=== PATIENT | male | born 1960 | race Caucasian/White ===

== ENCOUNTER 2020-01-27 16:45 | Emergency (ER) | payer MEDICARE, SELFPAY ==
[2020-01-27 16:47] VITALS: BP 146/94; PULSE 89; RESP 17; TEMP 36.6; O2SAT 96; BMI 33.4
--- NOTE | 2020-01-27 16:52 | ED.RN ---
PT PLACED IN C-COLLAR ON ARRIVAL TO ED.
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
[2020-01-27] MEDS: Morphine 4 MG/ML Syringe IV (18:08)
[2020-01-27] MEDS: Ondansetron 4 MG/2 ML Vial IV (18:08)
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
[2020-01-27 19:02] VITALS: BP 134/77; PULSE 62; RESP 15; O2SAT 98
== END 2020-01-27 19:04 | disposition home or self-care (01) ==
PROVIDERS: Emergency Provider Emergency Medicine; PCP Family Medicine
DX: S16.1XXA Strain of muscle, fascia and tendon at neck level, initial encounter (principal); S39.012A Strain of muscle, fascia and tendon of lower back, initial encounter; S20.219A Contusion of unspecified front wall of thorax, initial encounter; V53.5XXA Driver of pick-up truck or van injured in collision with car, pick-up truck or van in traffic accident, initial encounter; Y93.89 Activity, other specified; Y92.9 Unspecified place or not applicable; F32.9 Major depressive disorder, single episode, unspecified; F17.200 Nicotine dependence, unspecified, uncomplicated
CPT/HCPCS: 71046; 72040; 72100; 96374; 96375; 99283; A4216; J2405

== ENCOUNTER 2021-01-18 19:24 | Emergency (ER) | payer MEDICARE, SELFPAY ==
[2021-01-18 19:25] VITALS: BP 126/90; PULSE 88; RESP 16; TEMP 36.5; O2SAT 95; BMI 30.4
--- NOTE | 2021-01-18 19:52 | ED.VIS.LOWEX ---
HPI History of Present Illness Chief Complaint: Lower Extremity Injury Informant: patient Narrative Narrative: Patient has right hip pain. It started 4 hours ago. He states he was getting out of his truck and when he stepped down to the right leg he felt pain immediately in the right hip. Is also in the groin area. It is worse with movement and with walking. He has a history of 2 previous hip replacements on that right side. He did not take anything for the pain. PFSH PFSH Medical History Hypertension Marijuana abuse Smoker Home Medications duloxetine 60 mg PO DAILY 12/04/13 [History Last Taken 04/15/16] famotidine 40 mg PO DAILY 12/04/13 [History Last Taken 04/15/16] lisinopril 10 mg PO DAILY 12/04/13 [History Last Taken 04/16/16] omeprazole 40 mg PO DAILY 04/09/16 [History Last Taken 04/16/16] naproxen 500 mg PO BID #14 tab 01/27/20 [Rx Last Taken Unknown] prednisone 40 mg PO DAILY #8 tablet 01/18/21 [Rx Last Taken Unknown] Allergy/AdvReac Type Severity Reaction Status Date / Time fentanyl AdvReac Other Verified 01/18/21 19:29 Surgical History History of cholecystectomy Social History Smoking Status: Current every day smoker ROS [facility] ED Constitutional Constitutional ED: Denies chills or fever(s) Eyes Eyes: Denies blurry vision, change in vision or diplopia ENT ENT ED: Denies ear pain, rhinorrhea or sore throat Cardiovascular Cardiovascular: Denies chest pain or palpitations Respiratory/Chest Respiratory/Chest: Denies cough, dyspnea or sputum Gastrointestinal Gastrointestinal: Denies abdominal pain, diarrhea, nausea or vomiting Genitourinary Genitourinary ED: Denies dysuria, hematuria or urinary frequency Musculoskeletal Musculoskeletal: Reports other Details: Right hip pain Integumentary Denies change in pigmentation or rash Neurologic Neurologic: Denies headache(s), numbness or weakness Psychiatric Psychiatric: Denies anxiety or depression Endocrine Endocrinology: Denies polydipsia or polyuria EXAM Physical Exam Const Vital Signs: 01/18/21 19:25 Temperature 97.7 F L Temperature Source Temporal Pulse Rate 88 Respiratory Rate 16 Blood Pressure 126/90 H Blood Pressure Mean 102 Pulse Ox 95 Oxygen Delivery Method Room Air Positive well nourished and well developed General Appearance ED: well developed HEENT normocephalic and atraumatic Eyes PERRL Neck full ROM Extremity Extremity Narrative: Right hip is minimally tender over the greater trochanteric area. He really has no pain with logroll, flexion or extension. There is no pain with heel strike. Legs are of equal length. He has a 2+ DP pulse. No hernias are palpated in the groin area. Neuro oriented x3, CN's II-XII intact bilaterally and moves all extremities Sensorium / Orientation: alert Motor Exam: Negative for general weakness Psych mental status grossly normal Skin Rashes: no rashes MDM MDM MDM Narrative Medical decision making narrative: The patient is given [place]. X-rays reviewed by myself and radiologist show no acute findings. The patient continued to have pain so he was given morphine intramuscularly. He states the pain is in the anterior portion of the hip now. I wondered if this could be manifestation of sciatica. The pain is not over the medial part of the thigh or along the deep venous system. There is no evidence of swelling. I doubt that this is a DVT. I will give the patient prednisone here and for home. He will follow-up with his PCP. Radiography Diagnostic Testing: Radiology Impression Hip/Pelvis X-Ray 01/18/21 20:33 IMPRESSION: No acute radiographic abnormalities. Partially visualized posterior fixation hardware involving the lower lumbar spine and sacrum. Total right hip arthroplasty appears to be in good positioning. No evidence of hardware failure or loosening. Electronically Signed: José Migule Grijalva MD at 21:22 EDT Tel , Service support , Discharge Plan Triage Chief Complaint: Lower Extremity Injury ED Provider: Terry Hensley Dx/Rx/DC Orders Clinical Impression: Acute pain of right hip Instructions: ED Sciatica Prescriptions: New prednisone 20 MG tablet 40 mg PO DAILY Qty: 8 RF: 0 No Action famotidine 20 MG tablet 40 mg PO DAILY RF: 0 lisinopril 2.5 MG tablet 10 mg PO DAILY RF: 0 duloxetine 60 MG capsule 60 mg PO DAILY RF: 0 omeprazole 40 MG capsule,delayed release(DR/EC) 40 mg PO DAILY RF: 0 naproxen 500 MG tablet 500 mg PO BID Qty: 14 RF: 0 Primary Care Provider: Cristopher Sheikh Referrals: Cristopher Sheikh MD [Primary Care Provider] - Disposition Disposition: Home, self care
--- NOTE | 2021-01-18 20:33 | RAD_ITS ---
INDICATION: pain EXAMINATION/TECHNIQUE: X-RAY - RIGHT XR Hip Unilateral with Pelvis when performed; 2-3 Views COMPARISON: 10/05/2014. FINDINGS: Partially visualized posterior fixation hardware involving the lower lumbar spine and sacrum. Total right hip arthroplasty appears to be in good positioning. No evidence of hardware failure or loosening. No acute fracture or malalignment. No blastic or lytic lesions. The soft tissues are unremarkable. RAD/HIP, UNI W/ Pelvis 2-3 Views IMPRESSION: No acute radiographic abnormalities. Partially visualized posterior fixation hardware involving the lower lumbar spine and sacrum. Total right hip arthroplasty appears to be in good positioning. No evidence of hardware failure or loosening. Electronically Signed: José Miguel Grijalva MD at 21:22 EDT Tel , Service support ,
[2021-01-18] MEDS: HYDROcodone Bitartrate/Apap 5/325 Tablet PO (20:53)
[2021-01-18 21:43] VITALS: BP 134/81; PULSE 85; RESP 18; O2SAT 97
[2021-01-18] MEDS: predniSONE 20 MG Tablet 40 MG PO (21:59)
[2021-01-18] MEDS: morphine 10 MG/ML Syringe 8 MG IM (21:59)
--- NOTE | 2021-01-18 23:00 | ED.RN ---
PT WAS HAVING DIFFICULTIES GETTING OOB FOR D/C. STATED HE COULD BARELY MOVE HIS LEG AND HE FELT IT WAS DEADWEIGHT. DR SINGER MADE AWARE. SHE WAS IN TO SEE PT WHO REFUSED ADMISSION AT THIS TIME. SON HERE TO TRANSPORT PT HOME. HE WAS UNABLE TO BEAR WEIGHT ON RLE AND HOPPED TO WHEELCHAIR WITH X2 ASSIST. PT REMINDED THAT HE CAN RETURN TO ED IF HE IS UNABLE TO AMBULATE. D/C INSTRUCTIONS GIVEN TO SON.
== END 2021-01-18 23:15 | disposition home or self-care (01) ==
PROVIDERS: Emergency Provider Emergency Medicine; PCP Family Medicine
DX: M25.551 Pain in right hip (principal); I10 Essential (primary) hypertension; F17.200 Nicotine dependence, unspecified, uncomplicated; Z96.641 Presence of right artificial hip joint; Z79.899 Other long term (current) drug therapy
CPT/HCPCS: 73502; 96372; 99283

== ENCOUNTER → 2021-06-12 07:39 | Outpatient (CLI) | payer MEDICARE, SELFPAY ==
--- NOTE | 2021-06-12 12:50 | NEURO ---
NCS and/or EMG Patient Report Ordering Doctor: Cristopher Sheikh DATE OF SERVICE: 06/12/21 [place] Presents for electrodiagnostic testing of the upper limbs. He reports numbness and tingling in both hands. Electrodiagnostic findings: Right median motor nerve demonstrates borderline prolonged distal latency with normal amplitude and reduced conduction velocity. Left median motor nerve demonstrates normal distal latency amplitude with reduced conduction velocity. Prolonged median sensory latency at the wrist bilaterally. Normal ulnar and radial sensory responses median and ulnar F waves are normal. On needle EMG, all muscles tested in the upper limbs showed no evidence of denervation with normal motor unit action potentials. Electrodiagnostic assessment: This is an abnormal study in the upper limbs 1. Electrodiagnostic findings demonstrate bilateral median mononeuropathy. This is consistent with a mild bilateral carpal tunnel syndrome.
== END ==
LOC: PSN 07:40
PROVIDERS: PCP Family Medicine; Referring Provider Family Medicine; Visit Provider Family Medicine
DX: R20.0 Anesthesia of skin (principal)
CPT/HCPCS: 95886; 95913

== ENCOUNTER 2021-09-19 16:17 | Emergency (ER) | payer MEDICARE, SELFPAY ==
[2021-09-19 16:18] VITALS: BP 171/105; PULSE 116; RESP 17; TEMP 36.4; O2SAT 96; BMI 35.6
[2021-09-19 16:20] VITALS: BP 171/105; PULSE 97; RESP 17; TEMP 36.4; O2SAT 98
[2021-09-19 16:34] VITALS: O2SAT 98
--- NOTE | 2021-09-19 16:34 | EKG12_ITS ---
Test Reason : CP Blood Pressure : / mmHG Vent. Rate : 104 BPM Atrial Rate : 104 BPM P-R Int : 168 ms QRS Dur : 090 ms QT Int : 334 ms P-R-T Axes : 037 -67 016 degrees QTc Int : 439 ms Sinus tachycardia Left axis deviation Low voltage QRS (Limb Leads) Poor R wave progression Abnormal ECG Confirmed by CHI SCHWARZ, DOC ([id number]), graphics editor CANDIS RODRIGUEZ ([id number]) on 09/23/2021 11:24:19 AM Referred By: AIRAM Confirmed By:DOC MIRELES MD
--- NOTE | 2021-09-19 16:36 | ED.VIS.CHEST ---
HPI History of Present Illness Chief Complaint: Chest Pain Informant: patient Onset/Context/Timing Onset: Days (3) Timing: Intermittent Quality: Positive for Dull Location: Left Chest (radiating into left shoulder only) Current Severity: Gone Maximum Severity: Moderate Worsened By: Exertion; Not Worsened By Breathing Relieved By: Rest Associated Symptoms: Positive for Diaphoresis and Dyspnea; Negative for Nausea, Vomiting, Cough, Fever, Lightheadedness and Palpitations Narrative Narrative: 3 days of exertional chest discomfort, goes away in about 10 minutes after he rests. No known history of heart disease. He does have a history of COPD and does not require home oxygen. He is a smoker. Also has a history of hypertension for which he takes medications. He has had a worse than chronic cough for the past month, states he always has pain everywhere and that is no different, does not feel more tired than usual. PFSH PFSH Medical History Hypertension Marijuana abuse Smoker Home Medications duloxetine 60 mg PO DAILY 12/04/13 [History Last Taken 04/15/16] famotidine 40 mg PO DAILY 12/04/13 [History Last Taken 04/15/16] lisinopril 10 mg PO DAILY 12/04/13 [History Last Taken 04/16/16] omeprazole 40 mg PO DAILY 04/09/16 [History Last Taken 04/16/16] naproxen 500 mg PO BID #14 tab 01/27/20 [Rx Last Taken Unknown] prednisone 40 mg PO DAILY #8 tablet 01/18/21 [Rx Last Taken Unknown] atorvastatin 40 mg PO DAILY 09/19/21 [History Last Taken Unknown] bupropion HCl 150 mg PO DAILY 09/19/21 [History Last Taken Unknown] Allergy/AdvReac Type Severity Reaction Status Date / Time fentanyl AdvReac Other Verified 09/19/21 16:20 Surgical History History of cholecystectomy Social History Smoking Status: Current every day smoker tobacco type: cigarettes ROS ROS ED Constitutional Constitutional ED: Reports body ache(s), excessive sweating and malaise; Denies chills or fever(s) Eyes Eyes: Denies change in vision or diplopia ENT ENT ED: Denies rhinorrhea or sore throat Cardiovascular Cardiovascular: Reports chest pain with activity and dyspnea on exertion; Denies edema or palpitations Respiratory/Chest Respiratory/Chest: Denies cough or dyspnea Gastrointestinal Gastrointestinal: Denies abdominal pain, diarrhea, nausea or vomiting Genitourinary Genitourinary ED: Denies dysuria or hematuria Musculoskeletal Musculoskeletal: Denies back pain or neck pain Integumentary Denies abscess or rash Neurologic Neurologic: Reports headache(s); Denies paresthesias or weakness Psychiatric Psychiatric: Denies anxiety or suicidal thoughts EXAM Physical Exam Const Vital Signs: 09/19/21 16:18 09/19/21 16:20 09/19/21 16:34 Temperature 97.6 F L 97.6 F L Temperature Source Temporal Temporal Pulse Rate 116 H 97 Respiratory Rate 17 17 Respiratory Effort Normal Non-Labored Blood Pressure 171/105 H 171/105 H Blood Pressure Mean 127 127 Pulse Ox 96 98 98 Oxygen Delivery Method Room Air Room Air Room Air 09/19/21 19:00 Temperature Temperature Source Pulse Rate 88 Respiratory Rate 19 H Respiratory Effort Blood Pressure 149/89 H Blood Pressure Mean 109 Pulse Ox 97 Oxygen Delivery Method Room Air Positive well nourished, well developed, obese and unkempt General Appearance ED: unkempt, well developed and NAD Nutritional Appearance: obese HEENT Reports moist mucous membranes normocephalic and atraumatic Eyes PERRL and EOMs intact bilaterally Neck full ROM and supple Resp normal respiratory effort and clear to auscultation bilaterally Cardio regular rate, regular rhythm, no murmurs, no JVD and peripheral pulses 2+ throughout Cardio Narrative: mild tachycardia GI non-tender and non-distended Auscultation: normoactive bowel sounds Palpation: soft Back/Spine no CVA tenderness General Back: other FROM Extremity normal to inspection and no calf tenderness General Extremety ED: Negative for edema, pulses abnormal or tenderness General Extremity: Negative for edema or pulses abnormal Neuro oriented x3, CN's II-XII intact bilaterally and no sensory deficits noted Sensorium / Orientation: awake and alert Motor Exam: strength 5/5 throughout Psych Appearance: unkempt Skin no rashes or lesions noted and no wounds Heart Score History: Highly Suspicious ECG: Nonspecific Repolarization Age: >45 - <65 years Risk Factors: 1 or 2 Risk Factors Troponin: </= Normal Limit Score: 5 MDM MDM MDM Narrative Medical decision making narrative: Patient was given baby aspirin x4 and observed. His symptoms resolved and he felt much better. His work-up is negative. I am concerned about his symptoms and offered admission, however he declines and wants to go home saying that he happens to have a stress test scheduled on Thursday, tonight being night. He plans on resting in his apartment until then, we discussed reasons to return. Lab Data Attestation: I reviewed the patient's lab results. Labs: Laboratory Results - last 24 hr 09/19/21 09/19/21 16:37 16:37 WBC 10.9 RBC 5.03 Hgb 15.0 Hct 45.6 MCV 90.7 MCH 29.8 MCHC 32.9 RDW Std Deviation 48.9 H RDW Coeff of Shemar 14.7 H Plt Count 316 MPV 8.9 Immature Gran % (Auto) 0.900 Neut % (Auto) 55.5 Lymph % (Auto) 31.0 [place] % (Auto) 10.0 Eos % (Auto) 2.1 Baso % (Auto) 0.5 Absolute Neuts (auto) 6.1 Absolute Lymphs (auto) 3.38 Nucleated RBC % 0 Sodium 139 Potassium 3.8 Chloride 106 Carbon Dioxide 24.0 Anion Gap 9 BUN 15 Creatinine 0.98 Estim Creat Clear Calc 78.52 Est GFR (MDRD) Af Amer 100 Est GFR (MDRD) Non-Af 83 BUN/Creatinine Ratio 15.3 Glucose 99 Calcium 9.8 Troponin I High Sens 9 Radiography Diagnostic Testing: Clinical Impression(s) from Imaging Studies Chest X-Ray 09/19/21 16:40 IMPRESSION: No active disease. Electronically Signed: Andrea Guillermo MD at 16:58 EST Tel , Service support , EKG Initial EKG: Attestation: I personally reviewed and interpreted this EKG as follows: Interpretation: No Acute Injury Pattern and Sinus Tachycardia Comments: left axis. late transition. Prior EKG tracings: available for review Prior: Unchanged (no major changes) Discharge Plan Triage Chief Complaint: Chest Pain ED Provider: Gaston Persaud Dx/Rx/DC Orders Clinical Impression: Intermittent chest pain Instructions: ED Chest Pain, Uncertain Cause Prescriptions: No Action famotidine 20 MG tablet 40 mg PO DAILY RF: 0 lisinopril 2.5 MG tablet 10 mg PO DAILY RF: 0 duloxetine 60 MG capsule 60 mg PO DAILY RF: 0 omeprazole 40 MG capsule,delayed release(DR/EC) 40 mg PO DAILY RF: 0 naproxen 500 MG tablet 500 mg PO BID Qty: 14 RF: 0 prednisone 20 MG tablet 40 mg PO DAILY Qty: 8 RF: 0 atorvastatin 40 mg tablet 40 mg PO DAILY RF: 0 bupropion HCl 150 mg tablet sustained-release 12 hr 150 mg PO DAILY RF: 0 Primary Care Provider: Cristopher Sheikh Referrals: Cristopher Sheikh MD [Primary Care Provider] - 3-5 Days if not improving Disposition Disposition: Home, Self Care
--- NOTE | 2021-09-19 16:40 | RAD_ITS ---
STUDY: X-RAY CHEST REASON FOR EXAM: Male, 60 years old. chest pain TECHNIQUE: Single AP portable view of the chest. COMPARISON: 01/27/2020 FINDINGS: The lungs are clear and expanded. There is no demonstrated pleural abnormality. Normal size heart. Normal mediastinum and wilma. Normal visualized pulmonary arteries. Normal visualized aortic arch and descending thoracic aorta. There is a dextroscoliosis of the thoracic spine. Normal visualized ribs, clavicles, and shoulders. There is no demonstrated abnormality of the visualized soft tissue structures of the upper abdomen. RAD/Chest 1 View (Portable) IMPRESSION: No active disease. Electronically Signed: Andrea Guillermo MD at 16:58 EST Tel , Service support ,
[2021-09-19] MEDS: Aspirin 81 MG TAB.CHEW 324 MG PO (16:41)
[2021-09-19 16:49] LABS: Absolute Lymphocyte Count 3.38 X10^3/uL (0.83-4.51); Absolute Neutrophil Count 6.1 X10^3/uL (2.0-7.7); Basophil# 0.06 X10^3/uL; Basophil% 0.5 % (0-1); Eosinophil# 0.23 X10^3/uL; Eosinophils% 2.1 % (0-5); Hematocrit 45.6 % (40-54); Lymphocyte # 3.38 X10^3/ul (0.83-4.51); Mean Corp Hgb Conc 32.9 g/dL (32-36); Mean Corpuscular Hgb 29.8 pg (27.0-32.0); Mean Corpuscular Volume 90.7 fL (80-94); Mean Platelet Vol. 8.9 fl (6.2-12.0); Monocyte# 1.09 X10^3/uL; NRBC Flagged by Analyzer 0 % (0-5); Neutrophil # 6.06 X10^3/uL (2.7-7.7); Neutrophil % 55.5 % (47-70); Platelet Count 316 K/mm3 (150-450); RBC Distribution Width CV 14.7 % (11.6-14.6); RBC Distribution Width SD 48.9 fl (35.1-43.9); Red Blood Count 5.03 M/mm3 (4.6-6.2); White Blood Count 10.9 K/mm3 (4.4-11.0)
[2021-09-19 17:22] LABS: Anion Gap 9 (5-15); BUN 15 mg/dL (7-18); BUN/Creat Ratio 15.3 RATIO (10-20); Calcium,Total 9.8 mg/dL (8.5-10.1); Chloride 106 mmol/L (98-107); Creatinine, Serum 0.98 mg/dL (0.70-1.30); EST Glomerular Filtration Rate 83 mL/min (>60); Est Glom Filt Rate - Afr Amer 100 mL/min (>60); Estimated Creatinine Clearance 78.52 ml/min; Glucose 99 mg/dL (74-106); Potassium 3.8 mmol/L (3.5-5.1); Sodium Level 139 mmol/L (136-145); Troponin-I HS 9 pg/mL (3.0-78.0)
[2021-09-19 19:00] VITALS: BP 149/89; PULSE 88; RESP 19; O2SAT 97
[2021-09-19 19:47] VITALS: PULSE 90; RESP 16; O2SAT 99
== END 2021-09-19 19:47 | disposition home or self-care (01) ==
PROVIDERS: Emergency Provider Emergency Medicine; PCP Family Medicine; Visit Provider Emergency Medicine
DX: R07.89 Other chest pain (principal); J44.9 Chronic obstructive pulmonary disease, unspecified; I10 Essential (primary) hypertension; F17.210 Nicotine dependence, cigarettes, uncomplicated; Z79.899 Other long term (current) drug therapy; E66.9 Obesity, unspecified; R06.00 Dyspnea, unspecified; Z68.35 Body mass index [BMI] 35.0-35.9, adult
CPT/HCPCS: 71045; 80048; 84484; 85025; 93005; 99285; A4216

== ENCOUNTER 2021-09-24 08:57 | Emergency (ER) | payer MEDICARE, SELFPAY ==
[2021-09-24 08:57] VITALS: BP 164/99; PULSE 83; RESP 28; TEMP 36.8; O2SAT 100; BMI 37.3
--- NOTE | 2021-09-24 09:19 | RAD_ITS ---
STUDY: X-RAY CHEST REASON FOR EXAM: Male, 60 years old. Chest pain TECHNIQUE: Single AP portable view of the chest. COMPARISON: Comparison is made with prior examination dated 09/19/2021. FINDINGS: EKG electrodes are seen. The lungs are clear and expanded. There is no demonstrated pleural abnormality. Normal size heart. Normal mediastinum and wilma. Normal visualized pulmonary arteries. There is atherosclerotic tortuosity of the aortic arch and descending thoracic aorta. There are diffuse degenerative changes of the visualized thoracic spine. Prior fusion of the lower thoracic and upper lumbar vertebrae. Normal visualized ribs, clavicles, and shoulders. There is no demonstrated abnormality of the visualized soft tissue structures of the upper abdomen. RAD/Chest 1 View (Portable) IMPRESSION: No acute abnormality is seen. Electronically Signed: Jorge Rajan MD at 10:57 EST , Service support ,
--- NOTE | 2021-09-24 09:20 | EKG12_ITS ---
Test Reason : CP Blood Pressure : / mmHG Vent. Rate : 078 BPM Atrial Rate : 078 BPM P-R Int : 178 ms QRS Dur : 104 ms QT Int : 392 ms P-R-T Axes : 028 -45 040 degrees QTc Int : 446 ms Normal sinus rhythm Left axis deviation Inferior infarct , age undetermined Abnormal ECG Confirmed by VIPIN SCHWARZ, MIKE ([id number]), supervising film or videotape editor CANDIS RODRIGUEZ ([id number]) on 09/25/2021 10:09:55 AM Referred By: SERGIO Confirmed By:MIKE LEW MD
--- NOTE | 2021-09-24 09:48 | EDS_ITS ---
HPI History of Present Illness Chief Complaint: Chest Pain Informant: patient Narrative Narrative: Patient is a 60-year-old male with history of GERD, tobacco abuse ERIC, hypertension and depression presenting with continued chest pain, shortness of breath as well as dizziness. Patient states for the past few months his doctor has been adjusting his psychiatric medications and he has not been feeling right. He states his head often feels cold but then he sweats. He often feels lightheaded and has had worsening spinning sensation. It is worse when he moves his head quickly. Seems to be worse when he looks to the right. He also notes that he has been having worsening chest discomfort for the past few weeks. It in his left chest and feels like its been punched. He states it is worse whenever he exerts himself or walks a short distance. He states he gets v christina short of breath when he does this as well as sweaty and lightheaded. His symptoms get better with rest. He has a persistent cough that also been worsening. He attributes it to his smoking. He denies any fever. He does have some posttussive vomiting most recently last night. He denies any leg swelling. Denies any history of DVT or PE. He is not currently on any anticoagulation. Patient was supposed to have a stress test yesterday for this chest pain but could not drive because of the weather and because his dizziness was too bad and he had a hard time focusing. Patient was seen in the ER 09/19/2021 for his chest pain. At that time he was offered admission because his chest pain was concerning for angina however patient had declined stating he would follow-up outpatient for his stress test. [facility] Medical History Hypertension Marijuana abuse Smoker Home Medications duloxetine 60 mg PO DAILY 12/04/13 [History Last Taken 04/15/16] famotidine 40 mg PO DAILY 12/04/13 [History Last Taken 04/15/16] lisinopril 10 mg PO DAILY 12/04/13 [History Last Taken 04/16/16] omeprazole 40 mg PO DAILY 04/09/16 [History Last Taken 04/16/16] naproxen 500 mg PO BID #14 tab 01/27/20 [Rx Last Taken Unknown] prednisone 40 mg PO DAILY #8 tablet 01/18/21 [Rx Last Taken Unknown] atorvastatin 40 mg PO DAILY 09/19/21 [History Last Taken Unknown] bupropion HCl 150 mg PO DAILY 09/19/21 [History Last Taken Unknown] guaifenesin [Mucinex] 1,200 mg PO Q12H PRN #20 tab 09/24/21 [Rx Last Taken Unknown] meclizine 25 mg PO TID PRN #20 tab 09/24/21 [Rx Last Taken Unknown] Allergy/AdvReac Type Severity Reaction Status Date / Time fentanyl AdvReac Other Verified 09/24/21 10:07 Surgical History History of cholecystectomy Social History Smoking Status: Current every day smoker tobacco type: cigarettes ROS ROS ED Constitutional Constitutional ED: Reports chills and sweats; Denies fever(s) Eyes Eyes: Denies change in vision ENT ENT ED: Denies ear pain, rhinorrhea or sore throat Cardiovascular Cardiovascular: Reports chest pain; Denies palpitations Respiratory/Chest Respiratory/Chest: Reports cough, dyspnea and dyspnea on exertion Gastrointestinal Gastrointestinal: Reports vomiting; Denies abdominal pain, constipation, diarrhea or nausea Genitourinary Genitourinary ED: Denies dysuria or hematuria Musculoskeletal Musculoskeletal: Denies arthralgias or myalgias Integumentary Denies rash Neurologic Neurologic: Denies headache(s) or weakness Psychiatric Psychiatric: Reports depression; Denies anxiety, suicidal ideation or suicidal thoughts EXAM Physical Exam Const Vital Signs: 09/24/21 08:57 09/24/21 11:46 09/24/21 11:54 Temperature 98.2 F Temperature Source Oral Pulse Rate 83 71 Pulse Rate [Lying] 73 Pulse Rate [Sitting] 78 Pulse Rate [Standing] 81 Respiratory Rate 28 H 17 Blood Pressure 164/99 H 138/78 H Blood Pressure [Lying] 137/87 H Blood Pressure [Sitting] 140/86 H Blood Pressure [Standing] 140/88 H Blood Pressure Mean 120 98 Blood Pressure Mean [Lying] 103 Blood Pressure Mean [Sitting] 104 Blood Pressure Mean [Standing] 105 Pulse Ox 100 97 Oxygen Delivery Method Room Air Room Air 09/24/21 12:50 Temperature Temperature Source Pulse Rate 66 Pulse Rate [Lying] Pulse Rate [Sitting] Pulse Rate [Standing] Respiratory Rate 19 H Blood Pressure 156/90 H Blood Pressure [Lying] Blood Pressure [Sitting] Blood Pressure [Standing] Blood Pressure Mean 112 Blood Pressure Mean [Lying] Blood Pressure Mean [Sitting] Blood Pressure Mean [Standing] Pulse Ox 93 Oxygen Delivery Method Positive well nourished and well developed General Appearance ED: well developed HEENT Reports TM's clear and dry mucous membranes normocephalic and atraumatic Tympanic Membrane ED: Yes TM's clear Mouth ED: Yes dry mucous membranes Mouth: dry mucous membranes Eyes PERRL and EOMs intact bilaterally Eyes Narrative: Nystagmus bilateral, horizontal and fatiguing with rightward gaze Neck supple and no JVD Chest Wall inspection of chest normal Resp normal respiratory effort Resp Narrative: Scattered rhonchi. No wheezes appreciated. breath sounds throughout. Effort and Inspection: Negative for respiratory distress Cardio regular rate and regular rhythm GI normal to inspection, nondistended, normoactive bowel sounds, soft to palpation and non-tender Extremity normal to inspection General Extremety ED: Negative for edema or tenderness General Extremity: Negative for edema Neuro oriented x3 and gait normal Sensorium / Orientation: awake and alert Motor Exam: Negative for general weakness Psych mental status grossly normal Mood & Affect: anxious Skin no rashes or lesions noted and no wounds Heart Score History: Slightly/Non-Suspicious ECG: Normal Age: >45 - <65 years Risk Factors: >/= 3 Risk Factors or History of CAD Troponin: </= Normal Limit Score: 3 MDM MDM MDM Narrative Medical decision making narrative: Patient is evaluated for multiple symptoms including dizziness, lightheadedness, cough that has been worsening for the past month and chest pain. Patient's been having this chest pain for weeks as well. It is concerning as it is worse with exertion however patient does not have any acute ischemic changes on his EKG and his troponin is negative x2 again today. He ultimately is found to have COVID-19 infection. I suspect that is why he is feeling worse. D-dimer is below the threshold so I do not suspect a PE. Patient does not have a leukocytosis and no signs of pneumonia. I do not suspect any superimposed bacterial infection. Will ultimately I do think patient would benefit from a stress test I do not think with his acute COVID-19 infection he needs to come in for stress test. He does not require admission for COVID itself. He is instructed to take [id number] medications including his albuterol inhalers for his COVID symptoms and to keep hydrated. He is counseled on return precautions as well as quarantine instructions. Patient verbalizes agreement and understand with this plan. Patient is given a dose of meclizine in the ER which does seem to help his dizziness. I suspect he also has a component of vertigo but I do not think this is his primary problem. He has normal coordination and I do not suspect a central vertigo. Lab Data Labs: Laboratory Results - last 24 hr 09/24/21 09/24/21 09/24/21 09:45 09:45 09:45 WBC 7.2 RBC 4.86 Hgb 14.7 Hct 44.2 MCV 90.9 MCH 30.2 MCHC 33.3 RDW Std Deviation 50.2 H RDW Coeff of Shemar 15.0 H Plt Count 276 MPV 9.0 Immature Gran % (Auto) 0.800 Neut % (Auto) 59.9 Lymph % (Auto) 23.6 Antelope % (Auto) 13.2 H Eos % (Auto) 1.7 Baso % (Auto) 0.8 Absolute Neuts (auto) 4.3 Absolute Lymphs (auto) 1.70 Nucleated RBC % 0 D-Dimer Quant (PE/DVT) 0.45 Sodium 137 Potassium 3.9 Chloride 104 Carbon Dioxide 26.0 Anion Gap 7 BUN 15 Creatinine 0.92 Estim Creat Clear Calc 83.64 Est GFR (MDRD) Af Amer 107 Est GFR (MDRD) Non-Af 89 BUN/Creatinine Ratio 16.2 Glucose 99 Calcium 9.0 Total Bilirubin 0.50 AST 23 ALT 38 Alkaline Phosphatase 174 H Total Creatine Kinase Troponin I High Sens 6 B-Natriuretic Peptide Total Protein 7.4 Albumin 3.6 Globulin 3.8 Albumin/Globulin Ratio 0.9 09/24/21 09/24/21 09/24/21 09:45 09:45 11:50 WBC RBC Hgb Hct MCV MCH MCHC RDW Std Deviation RDW Coeff of Shemar Plt Count MPV Immature Gran % (Auto) Neut % (Auto) Lymph % (Auto) [place] % (Auto) Eos % (Auto) Baso % (Auto) Absolute Neuts (auto) Absolute Lymphs (auto) Nucleated RBC % D-Dimer Quant (PE/DVT) Sodium Potassium Chloride Carbon Dioxide Anion Gap BUN Creatinine Estim Creat Clear Calc Est GFR (MDRD) Af Amer Est GFR (MDRD) Non-Af BUN/Creatinine Ratio Glucose Calcium Total Bilirubin AST ALT Alkaline Phosphatase Total Creatine Kinase 110 Troponin I High Sens 6 B-Natriuretic Peptide 97.0 Total Protein Albumin Globulin Albumin/Globulin Ratio Radiography Chest X-Ray - ED: 1 View, Read by ED Physician, Read by Radiologist and No Acute Disease Diagnostic Testing: Clinical Impression(s) from Imaging Studies Chest X-Ray 09/24/21 09:19 IMPRESSION: No acute abnormality is seen. Electronically Signed: Jorge Rajan MD at 10:57 EST , Service support , Rhythm Strip Rhythm Strip: Sinus Rhythm Rate: 78 Ectopy: None EKG Initial EKG: Attestation: I personally reviewed and interpreted this EKG as follows: Interpretation: Sinus Rhythm Comments: Normal sinus rhythm at a rate of 78 Left axis deviation Normal OR, QRS and QTc intervals Normal ST segments Discharge Plan Triage Chief Complaint: Chest Pain ED Provider: Rose Rodriguez Dx/Rx/DC Orders Clinical Impression: COVID-19 virus infection, Chest pain, Vertigo Instructions: Coronavirus Disease 2019 (COVID-19): Caring for Yourself or Others, ED Chest Pain, Uncertain Cause, ED Vertigo, Unspecified Prescriptions: New meclizine 25 mg tablet 25 mg PO TID PRN (Reason: dizziness) Qty: 20 RF: 0 guaifenesin [Mucinex] 600 mg tablet extended release 12hr 1,200 mg PO Q12H PRN (Reason: congestion) Qty: 20 RF: 0 No Action famotidine 20 MG tablet 40 mg PO DAILY RF: 0 lisinopril 2.5 MG tablet 10 mg PO DAILY RF: 0 duloxetine 60 MG capsule 60 mg PO DAILY RF: 0 omeprazole 40 MG capsule,delayed release(DR/EC) 40 mg PO DAILY RF: 0 naproxen 500 MG tablet 500 mg PO BID Qty: 14 RF: 0 prednisone 20 MG tablet 40 mg PO DAILY Qty: 8 RF: 0 atorvastatin 40 mg tablet 40 mg PO DAILY RF: 0 bupropion HCl 150 mg tablet sustained-release 12 hr 150 mg PO DAILY RF: 0 Primary Care Provider: Cristopher Sheikh Referrals: Cristopher Sheikh MD [Primary Care Provider] - Disposition Disposition: Home, Self Care Discharge Date/Time: 09/24/21 13:31
[2021-09-24 09:55] LABS: Absolute Neutrophil Count 4.3 X10^3/uL (2.0-7.7); Basophil# 0.06 X10^3/uL; Basophil% 0.8 % (0-1); Eosinophil# 0.12 X10^3/uL; Eosinophils% 1.7 % (0-5); Hematocrit 44.2 % (40-54); Hemoglobin 14.7 g/dL (13.0-16.5); Lymphocyte % 23.6 % (19-41); Mean Corp Hgb Conc 33.3 g/dL (32-36); Mean Corpuscular Hgb 30.2 pg (27.0-32.0); Mean Corpuscular Volume 90.9 fL (80-94); Monocyte# 0.95 X10^3/uL; Monocyte% 13.2 % (0-10); NRBC Flagged by Analyzer 0 % (0-5); Neutrophil % 59.9 % (47-70); Platelet Count 276 K/mm3 (150-450); RBC Distribution Width SD 50.2 fl (35.1-43.9); Red Blood Count 4.86 M/mm3 (4.6-6.2); White Blood Count 7.2 K/mm3 (4.4-11.0)
[2021-09-24 10:10] LABS: D-Dimer Quantitative (DVT/PE) 0.45 FEU/ug/m (0.27-0.49)
[2021-09-24 10:15] LABS: CPK Total, Creatine Kinase 110 U/L (39-308)
[2021-09-24 10:16] LABS: ALB/GLOB Ratio 0.9 RATIO (0.9-2.4); AST(SGOT) 23 U/L (15-37); Alanine Aminotransfer ALT/SGPT 38 U/L (16-61); Albumin, Serum 3.6 g/dL (3.2-5.0); Alkaline Phosphatase 174 U/L (45-117); Anion Gap 7 (5-15); BUN 15 mg/dL (7-18); BUN/Creat Ratio 16.2 RATIO (10-20); Chloride 104 mmol/L (98-107); Creatinine, Serum 0.92 mg/dL (0.70-1.30); EST Glomerular Filtration Rate 89 mL/min (>60); Est Glom Filt Rate - Afr Amer 107 mL/min (>60); Estimated Creatinine Clearance 83.64 ml/min; Globulin 3.8 g/dL (2.2-4.2); Glucose 99 mg/dL (74-106); Potassium 3.9 mmol/L (3.5-5.1); Protein, Total 7.4 g/dL (6.4-8.2); Sodium Level 137 mmol/L (136-145); Troponin-I HS 6 pg/mL (3.0-78.0)
[2021-09-24] MEDS: Meclizine HCl 25 MG Tablet PO (10:20)
[2021-09-24] MEDS: Ondansetron 4 MG/2 ML Vial IV (10:21)
[2021-09-24] MEDS: Pantoprazole Sodium 40 MG Tablet PO (10:21)
[2021-09-24 11:46] VITALS: BP 137/87; BP 140/86; BP 140/88; PULSE 73; PULSE 78; PULSE 81
[2021-09-24 11:54] VITALS: BP 138/78; PULSE 71; RESP 17; O2SAT 97
[2021-09-24 12:19] LABS: Troponin-I HS 6 pg/mL (3.0-78.0)
[2021-09-24 12:50] VITALS: BP 156/90; PULSE 66; RESP 19; O2SAT 93
== END 2021-09-24 13:31 | disposition home or self-care (01) ==
PROVIDERS: Emergency Provider Emergency Medicine; PCP Family Medicine; Visit Provider Emergency Medicine
DX: U07.1 COVID-19 (principal); F17.210 Nicotine dependence, cigarettes, uncomplicated; I10 Essential (primary) hypertension; Z79.899 Other long term (current) drug therapy; G47.33 Obstructive sleep apnea (adult) (pediatric); F32.A Depression, unspecified; K21.9 Gastro-esophageal reflux disease without esophagitis; R06.02 Shortness of breath
CPT/HCPCS: 71045; 80053; 82550; 83880; 84484; 85025; 85379; 87426; 93005; 96361; 96374; 99283; J7030; J2405

== ENCOUNTER 2021-10-31 09:35 | Emergency (ER) | payer MEDICARE, SELFPAY ==
[2021-10-31 09:39] VITALS: BP 119/102; PULSE 101; RESP 22; TEMP 37.6; O2SAT 95; BMI 37.2
[2021-10-31 09:52] VITALS: BP 117/71
--- NOTE | 2021-10-31 09:56 | CT_ITS ---
STUDY: CT BRAIN WITHOUT CONTRAST REASON FOR EXAM: Male, 60 years old. Headache, Dizziness RADIATION DOSAGE (If Supplied By Facility): CTDIvol = ( 44.99 ) mGy, DLP = ( 843.73 ) mGycm TECHNIQUE: Transaxial CT imaging of the brain was performed without administration of intravenous contrast material. Individualized dose optimization techniques were used for this CT. COMPARISON: 07/16/2012 FINDINGS: Normal soft tissue structures. Normal calvarium. Normal size ventricles and extra-axial spaces for the patient''s age. Normal white matter tracts of the cerebral hemispheres. Normal basal ganglia and thalami. Normal brainstem. Normal cerebellum. There is no intracranial hemorrhage. There are no findings of an acute ischemic infarction. Normal visualized paranasal sinuses. CT/Brain/Head without Contrast IMPRESSION: Normal unenhanced CT scan of the brain. Electronically Signed: Andrea Guillermo MD at 10:54 EST ,
--- NOTE | 2021-10-31 09:57 | EKG12_ITS ---
Test Reason : SOB Blood Pressure : / mmHG Vent. Rate : 099 BPM Atrial Rate : 099 BPM P-R Int : 160 ms QRS Dur : 094 ms QT Int : 352 ms P-R-T Axes : 039 060 033 degrees QTc Int : 451 ms Normal sinus rhythm Low voltage QRS (Limb Leads) Poor R wave progression Inferior infarct , age undetermined Abnormal ECG Confirmed by CHI SCHWARZ, DOC ([id number]), online content editor CANDIS RODRIGUEZ ([id number]) on 11/04/2021 11:13:15 AM Referred By: MARIE Confirmed By:DOC MIRELES MD
--- NOTE | 2021-10-31 09:59 | EDS_ITS ---
HPI History of Present Illness Chief Complaint: General Illness Narrative Narrative: Patient presents via EMS with multiple somatic complaints. He has history of obstructive sleep apnea, COPD, is a smoker. He has had spinal stenosis with surgeries. He states that since yesterday, last evening at around 5 or 6 PM, he has had shortness of breath, cough, and dizziness. He states he was given little pills to help with his dizziness from previous, although he describes near syncopal feeling. States he has a frontal headache on both sides. He denies any trauma to his head. He recently had COVID-19 and has recovered, but states that he has been short of breath and has had a cough with yellow sputum production. He denies any fevers or chills. No numbness or tingling of his arms or legs. No other symptoms. He states that his main concerns are his headache, dizziness, and his shortness of breath and cough with yellow sputum production. PFSH PFSH Medical History Hypertension Marijuana abuse Smoker Home Medications duloxetine 60 mg PO DAILY 12/04/13 [History Last Taken 04/15/16] famotidine 40 mg PO DAILY 12/04/13 [History Last Taken 04/15/16] lisinopril 10 mg PO DAILY 12/04/13 [History Last Taken 04/16/16] omeprazole 40 mg PO DAILY 04/09/16 [History Last Taken 04/16/16] naproxen 500 mg PO BID #14 tab 01/27/20 [Rx Last Taken Unknown] prednisone 40 mg PO DAILY #8 tablet 01/18/21 [Rx Last Taken Unknown] atorvastatin 40 mg PO DAILY 09/19/21 [History Last Taken Unknown] bupropion HCl 150 mg PO DAILY 09/19/21 [History Last Taken Unknown] guaifenesin [Mucinex] 1,200 mg PO Q12H PRN #20 tab 09/24/21 [Rx Last Taken Unknown] meclizine 25 mg PO TID PRN #20 tab 09/24/21 [Rx Last Taken Unknown] albuterol sulfate [Proventil HFA] 2 puff INHALATION Q6H PRN #6.7 g 10/31/21 [Rx Last Taken Unknown] prednisone 40 mg PO DAILY #10 tab 10/31/21 [Rx Last Taken Unknown] Allergy/AdvReac Type Severity Reaction Status Date / Time escitalopram [From Lexapro] AdvReac Nausea/Vom/ Verified 10/31/21 09:44 Diarrhea fentanyl AdvReac Other Verified 10/31/21 09:43 Surgical History History of cholecystectomy Social History Smoking Status: Current every day smoker tobacco type: cigarettes ROS ROS ED ROS Narrative Constitutional: No fever, no chills. HEENT: No sore throat. No neck pain. No loss of vision. No rhinorrhea. Cardiovascular: No chest pain. Chest tightness. No palpitations. No pedal edema. Respiratory: Positive cough, yellow sputum production. Positive shortness of breath. Abdominal: No abdominal pain. No nausea. No vomiting. Genitourinary: No dysuria. No hematuria. Musculoskeletal: No myalgias. No arthralgias. Neurologic: Frontal headaches. Positive dizziness. Positive lightheadedness. No paresthesia. Skin: No rash. No change in color. Psychiatric: No depression. No anxiety. EXAM Physical Exam Narrative Exam Narrative: Comprehensive work-up was pursued. EKG will be obtained. Const Vital Signs: 10/31/21 09:39 10/31/21 09:52 10/31/21 09:53 Temperature 99.6 F H Temperature Source Temporal Pulse Rate 101 H Respiratory Rate 22 H Respiratory Effort Short of Breath Respiratory Pattern Tachypnea Blood Pressure 119/102 H 117/71 Blood Pressure Mean 107 86 Pulse Ox 95 Oxygen Delivery Method Room Air 10/31/21 10:23 10/31/21 11:25 Temperature Temperature Source Pulse Rate 97 90 Respiratory Rate 20 H 16 Respiratory Effort Respiratory Pattern Irregular Blood Pressure 119/91 H Blood Pressure Mean 100 Pulse Ox 95 Oxygen Delivery Method Room Air MDM MDM MDM Narrative Medical decision making narrative: Comprehensive work-up was pursued. He has elevated white count of 13.7 which is nonspecific, hemoglobin normal at 14.7, normal platelet count of 298. Slight hyponatremia with a sodium of 134. Troponin is negative and BNP is also normal. His EKG demonstrates normal sinus rhythm at 99 bpm without ectopy or acute ST changes. Chest x-ray shows no acute process. CT of the brain also shows no acute process. At this point in time, he did asked the RN for medication for his chronic back pain. He usually takes naproxen and Flexeril. He was given oral Flexeril here along with Toradol intravenously. Upon repeat examination, he is improved. Smoking cessation was discussed. I will write him prescriptions for another albuterol inhaler and a short prednisone burst for the next 5 days. He will follow up with his primary care physician. I feel he can be discharged safely home with follow-up. Return instructions were reviewed. Disposition is discharged home in stable condition. Lab Data Attestation: I reviewed the patient's lab results. Labs: Laboratory Results - last 24 hr 10/31/21 10/31/21 10/31/21 09:50 09:50 09:50 WBC 13.7 H RBC 4.88 Hgb 14.7 Hct 44.3 MCV 90.8 MCH 30.1 MCHC 33.2 RDW Std Deviation 49.9 H RDW Coeff of Shemar 14.9 H Plt Count 298 MPV 9.5 Immature Gran % (Auto) 0.700 Neut % (Auto) 78.8 H Lymph % (Auto) 12.5 L [place] % (Auto) 6.6 Eos % (Auto) 0.9 Baso % (Auto) 0.5 Absolute Neuts (auto) 10.8 H Absolute Lymphs (auto) 1.72 Nucleated RBC % 0 Sodium 134 L Potassium 4.1 Chloride 105 Carbon Dioxide 24.0 Anion Gap 5 BUN 12 Creatinine 0.99 Estim Creat Clear Calc 75.11 Est GFR (MDRD) Af Amer 99 Est GFR (MDRD) Non-Af 82 BUN/Creatinine Ratio 12.1 Glucose 103 Calcium 8.9 Troponin I High Sens 4 B-Natriuretic Peptide 29.6 Radiography Diagnostic Testing: Clinical Impression(s) from Imaging Studies Brain CT 10/31/21 09:56 IMPRESSION: Normal unenhanced CT scan of the brain. Electronically Signed: Andrea Guillermo MD at 10:54 EST , Chest X-Ray 10/31/21 10:35 IMPRESSION: Normal x-ray examination of the chest. Electronically Signed: Andrea Guillermo MD at 10:50 EST , Discharge Plan Triage Chief Complaint: General Illness ED Provider: Angel Cain Dx/Rx/DC Orders Clinical Impression: Dizziness, SOB (shortness of breath), COPD exacerbation, Chronic back pain Instructions: ED Back Pain (Acute or Chronic), ED COPD Flare, ED Dyspnea, ED Back and Neck Pain, General Prescriptions: New albuterol sulfate [Proventil HFA] 90 mcg/actuation HFA aerosol inhaler 2 puff inhalation Q6H PRN (Reason: shortness of breath or wheezing) Qty: 6.7 RF: 0 prednisone 20 mg tablet 40 mg PO DAILY Qty: 10 RF: 0 No Action famotidine 20 MG tablet 40 mg PO DAILY RF: 0 lisinopril 2.5 MG tablet 10 mg PO DAILY RF: 0 duloxetine 60 MG capsule 60 mg PO DAILY RF: 0 omeprazole 40 MG capsule,delayed release(DR/EC) 40 mg PO DAILY RF: 0 naproxen 500 MG tablet 500 mg PO BID Qty: 14 RF: 0 prednisone 20 MG tablet 40 mg PO DAILY Qty: 8 RF: 0 atorvastatin 40 mg tablet 40 mg PO DAILY RF: 0 bupropion HCl 150 mg tablet sustained-release 12 hr 150 mg PO DAILY RF: 0 meclizine 25 mg tablet 25 mg PO TID PRN (Reason: dizziness) Qty: 20 RF: 0 guaifenesin [Mucinex] 600 mg tablet extended release 12hr 1,200 mg PO Q12H PRN (Reason: congestion) Qty: 20 RF: 0 Primary Care Provider: Cristopher Sheikh Referrals: Cristopher Sheikh MD [Primary Care Provider] - 3-5 Days Disposition Disposition: Home, Self Care
[2021-10-31] MEDS: MethylPREDNISolone 125 MG/2 ML Vial IV (10:12)
[2021-10-31] MEDS: Ipratropium/Albuterol Sulfate 3 ML AMPUL.NEB INHALATION (10:21)
[2021-10-31 10:23] VITALS: PULSE 97; RESP 20
[2021-10-31 10:29] LABS: Absolute Lymphocyte Count 1.72 X10^3/uL (0.83-4.51); Absolute Neutrophil Count 10.8 X10^3/uL (2.0-7.7); Basophil# 0.07 X10^3/uL; Basophil% 0.5 % (0-1); Eosinophil# 0.13 X10^3/uL; Eosinophils% 0.9 % (0-5); Hematocrit 44.3 % (40-54); Hemoglobin 14.7 g/dL (13.0-16.5); Lymphocyte # 1.72 X10^3/ul (0.83-4.51); Lymphocyte % 12.5 % (19-41); Mean Corp Hgb Conc 33.2 g/dL (32-36); Mean Corpuscular Hgb 30.1 pg (27.0-32.0); Mean Corpuscular Volume 90.8 fL (80-94); Mean Platelet Vol. 9.5 fl (6.2-12.0); Monocyte# 0.91 X10^3/uL; Monocyte% 6.6 % (0-10); NRBC Flagged by Analyzer 0 % (0-5); Neutrophil # 10.82 X10^3/uL (2.7-7.7); Neutrophil % 78.8 % (47-70); Platelet Count 298 K/mm3 (150-450); RBC Distribution Width CV 14.9 % (11.6-14.6); RBC Distribution Width SD 49.9 fl (35.1-43.9); Red Blood Count 4.88 M/mm3 (4.6-6.2); White Blood Count 13.7 K/mm3 (4.4-11.0)
[2021-10-31 10:35] LABS: Anion Gap 5 (5-15); BUN 12 mg/dL (7-18); BUN/Creat Ratio 12.1 RATIO (10-20); Calcium,Total 8.9 mg/dL (8.5-10.1); Chloride 105 mmol/L (98-107); Creatinine, Serum 0.99 mg/dL (0.70-1.30); EST Glomerular Filtration Rate 82 mL/min (>60); Est Glom Filt Rate - Afr Amer 99 mL/min (>60); Estimated Creatinine Clearance 75.11 ml/min; Glucose 103 mg/dL (74-106); Potassium 4.1 mmol/L (3.5-5.1); Sodium Level 134 mmol/L (136-145); Troponin-I HS 4 pg/mL (3.0-78.0)
--- NOTE | 2021-10-31 10:35 | RAD_ITS ---
STUDY: X-RAY CHEST REASON FOR EXAM: Male, 60 years old. Shortness of Breath TECHNIQUE: Single AP portable view of the chest. COMPARISON: 09/24/2021 FINDINGS: The lungs are clear and expanded. There is no demonstrated pleural abnormality. Normal size heart. Normal mediastinum and wilma. Normal visualized pulmonary arteries. Normal visualized aortic arch and descending thoracic aorta. Normal visualized thoracic spine. Normal visualized ribs, clavicles, and shoulders. There is no demonstrated abnormality of the visualized soft tissue structures of the upper abdomen. RAD/Chest 1 View (Portable) IMPRESSION: Normal x-ray examination of the chest. Electronically Signed: Andrea Guillermo MD at 10:50 EST ,
[2021-10-31 11:25] VITALS: BP 119/91; PULSE 90; RESP 16; O2SAT 95
[2021-10-31 11:36] LABS: BNP,B-Type NATRIURETIC PEPTIDE 29.6 pg/mL (0-100)
[2021-10-31] MEDS: Ketorolac 30 MG/ML Syringe IV (11:41)
[2021-10-31] MEDS: cycloBENZAPRine HCl 10 MG Tablet PO (11:41)
[2021-10-31 12:51] VITALS: BP 138/105; PULSE 85; RESP 14; O2SAT 94
== END 2021-10-31 12:52 | disposition home or self-care (01) ==
PROVIDERS: Emergency Provider Emergency Medicine; PCP Family Medicine; Visit Provider Emergency Medicine
DX: J44.1 Chronic obstructive pulmonary disease with (acute) exacerbation (principal); R42 Dizziness and giddiness; E87.1 Hypo-osmolality and hyponatremia; I10 Essential (primary) hypertension; M54.9 Dorsalgia, unspecified; G89.29 Other chronic pain; F17.210 Nicotine dependence, cigarettes, uncomplicated; Z79.899 Other long term (current) drug therapy; Z86.16 Personal history of COVID-19
CPT/HCPCS: 70450; 71045; 80048; 83880; 84484; 85025; 93005; 94640; 96374; 96375; 99285; A4216

== ENCOUNTER 2021-11-19 09:25 | Outpatient (CLI) | payer MEDICARE, SELFPAY ==
--- NOTE | 2021-11-19 09:27 | CT_ITS ---
STUDY: CTA CHEST REASON FOR EXAM: Male, 60 years old. Atypical chest pain, fever and cough RADIATION DOSAGE (If Supplied By Facility): CTDIvol = ( 10.29 ) mGy, DLP = ( 498.99 ) mGycm TECHNIQUE: The examination was performed with the intravenous administration of IV 100mL [id number]-300. Post-processing of the angiographic images was performed, with multiplanar reformation and 3D reconstruction. Individualized dose optimization techniques were used for this CT. COMPARISON: None. FINDINGS: Normal enhancement of the main pulmonary artery and right and left pulmonary arteries. Normal enhancement of the bilateral peripheral pulmonary arteries. There is no demonstrated pulmonary embolism. Normal thoracic aorta and visualized great vessels. There is no demonstrated aortic dissection. Normal heart and pericardium. Normal mediastinum. Normal hilar regions. There is peribronchial thickening. The lungs are hyper expanded, with flattening of the hemidiaphragms. Emphysematous blebs noted in the apices of both lung hi with nonspecific pleural thickening and fibrotic scarring. Honeycombing noted in the periphery of both lung hi. There is no organized infiltrate, or suspicious noncalcified mass or nodule. Normal chest wall structures. There are degenerative changes of thoracic spine. Limited cuts through the upper abdomen show fatty infiltration of the liver, and a retrocardiac hiatal hernia. CT/CTA Chest W/WO Contrast IMPRESSION: No demonstrated PE, or thoracic aortic aneurysm or dissection Underlying emphysema with chronic interstitial changes, emphysematous blebs, and honeycombing in the periphery of both lung hi. No superimposed infiltrate or suspicious noncalcified mass or nodule Degenerative bony changes No suspicious adenopathy Fatty liver Electronically Signed: Irineo Sanchez MD at 11:13 EDT ,
== END 2021-11-19 23:59 | disposition home or self-care (01) ==
LOC: CT 09:26
PROVIDERS: PCP Family Medicine; Referring Provider Internal Medicine Cardiovascular Disease; Visit Provider Internal Medicine Cardiovascular Disease
DX: R07.9 Chest pain, unspecified (principal)
CPT/HCPCS: 71275; Q9967

== ENCOUNTER 2021-11-29 07:22 | Outpatient (CLI) | payer MEDICARE, SELFPAY ==
--- NOTE | 2021-11-29 16:55 | STRESSREP_ITS ---
Stress Test Report From otologic myocardial perfusion stress test. 60-year-old man with a history of chest pain. Stress protocol: Resting EKG demonstrates normal sinus rhythm with a rate of 65 bpm. Normal intervals are noted. 0.4 mg of regadenoson was infused per usual protocol followed by rapid venous saline flush injection continuous EKG monitoring was pe rformed. The maximum heart rate attained was 93 bpm which was 57% of max impact at heart rate the maximum workload was 1 metabolic equivalent. At rest there were no ST or T wave changes noted to suggest abnormal flow reserve and at peak infusion nonspecific ST changes were noted with did not meet the criteria for ischemia. No clinical angina was noted. The final blood pressure was 140/102 mmHg. Myocardial perfusion protocol. 14.3 mCi of technetium 99m sestamibi was injected at rest. 0.4 mg of regadenoson was infused per usual protocol. At peak infusion 44.5 mCi of technetium 99m sestamibi was injected stress images were obtained stress and rest images were reconstructed and compared in the short axis vertical long horizontal long axis. Gated images were also obtained per Perfusion SPECT analysis: Review of the stress images demonstrate normal uptake of tracer noted in all areas of the myocardium. The resting images similarly demonstrated normal uptake of tracer noted in all areas of the myocardium. No areas of reversibility are noted suggest ischemia no previous infarct is noted. Gated SPECT analysis: The gated ejection fraction is noted to be 64%. Conclusion: Normal pharmacologic myocardial perfusion stress test. Normal ejection fraction.
== END 2021-11-29 23:59 | disposition home or self-care (01) ==
LOC: CVS 07:22
PROVIDERS: PCP Family Medicine; Referring Provider Internal Medicine Cardiovascular Disease; Visit Provider Internal Medicine Cardiovascular Disease
DX: R07.9 Chest pain, unspecified (principal); R94.31 Abnormal electrocardiogram [ECG] [EKG]; R12 Heartburn; R06.00 Dyspnea, unspecified; I10 Essential (primary) hypertension; E78.5 Hyperlipidemia, unspecified; Z72.0 Tobacco use
CPT/HCPCS: 78452; 93017; A9500; A4216; J2785